=== PATIENT | male | born 1985 ===

== ENCOUNTER 2018-09-01 11:17 | Emergency (ER) | payer SELFPAY ==
[2018-09-01 11:49] LABS: BASOPHILS % (AUTO) 1 % (0-3); EOSINOPHILS % (AUTO) 2 % (0-9); HEMATOCRIT 46 % (39-53); HEMOGLOBIN 15.3 gm/dl (13.5-17.7); MEAN CORPUSCULAR HEMOGLOBIN 27.9 pg (27.0-32.0); MEAN CORPUSCULAR HGB CONC 33.3 gm/dl (32.0-36.0); MEAN CORPUSCULAR VOLUME 84 fL (80-100); MONOCYTES % (AUTO) 6.5 % (0-12)
[2018-09-01 12:12] LABS: ALBUMIN 3.3 gm/dl (3.4-5.0); BILIRUBIN,TOTAL 0.3 mg/dl (0.2-1.0); CALCIUM 7.6 mg/dl (8.5-10.1); CARBON DIOXIDE 26.1 mEq/L (21-32); CREATININE 0.87 mg/dl (0.80-1.30); POTASSIUM 3.6 mMol/L (3.5-5.1); THYROID STIMULATING HORMONE 1.284 uIU/ml (0.358-3.740); TOTAL PROTEIN 7.3 gm/dl (6.4-8.2)
[2018-09-01 12:20] LABS: ALCOHOL 0.126 gm/dl (0.000-0.08)
[2018-09-01 12:37] VITALS: TEMP 96.8
[2018-09-01 12:54] LABS: BARBITUATES NEGATIVE (NEGATIVE); BENZODIAZEPINES NEGATIVE (NEGATIVE); CANNABINOL(THC) POSITIVE (NEGATIVE); METHADONE NEGATIVE (NEGATIVE); TRICYCLIC ANTIDEPRESSANTS NEGATIVE (NEGATIVE)
[2018-09-01 12:55] LABS: AMPHETAMINES POSITIVE (NEGATIVE); COCAINE(COC) NEGATIVE (NEGATIVE); METHAMPHETAMINES POSITIVE (NEGATIVE); OPIATES(OPI) NEGATIVE (NEGATIVE); OXYCODONE(OXY) NEGATIVE (NEGATIVE); PROPOXYPHENE(PPX) NEGATIVE (NEGATIVE)
[2018-09-01 16:55] VITALS: BP 160/106; PULSE 68; RESP 18; O2SAT 95
== END 2018-09-01 16:07 | disposition short-term general hospital (02) | DRG 897 ==
LOC: ED 11:17
DX: F10.20 Alcohol dependence, uncomplicated (principal); Y90.6 Blood alcohol level of 120-199 mg/100 ml; F15.90 Other stimulant use, unspecified, uncomplicated; F12.90 Cannabis use, unspecified, uncomplicated
CPT/HCPCS: 36415; 80053; 80305; 80307; 84443; 85025; 99283; 99284